=== PATIENT | female | born 2005 | race Caucasian/White ===

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

== ENCOUNTER 2023-10-20 17:26 | Emergency (ER) | payer OTHER ==
[~2023-10-20] VITALS: Ht 160 cm; Wt 68.0 kg
[~2023-10-20 17:26] MED LIST changes: +CIPRO500 MG PO; +PYRIDIUM200 M1 PO
[2023-10-21] MEDS ORDERED: OMNICEF300 MG PO (21:37)
[2023-10-21] MEDS ORDERED: MONISTAT 315 GM V (21:40)
== END 2023-10-20 21:06 | disposition left against medical advice (07) ==
LOC: ED 17:26
DX: R39.198 Other difficulties with micturition (principal); Z53.21 Procedure and treatment not carried out due to patient leaving prior to being seen by health care provider

== ENCOUNTER 2023-10-21 19:42 | Emergency (ER) | payer OTHER ==
[~2023-10-21] VITALS: Ht 160 cm; Wt 63.5 kg
[2023-10-21 19:56] LABS: BILIRUBIN Negative (Negative); BLOOD 2+ (Negative); CLARITY Turbid (Clear); COLOR Yellow (Yellow); GLUCOSE Negative (Negative); KETONE Negative (Negative); LEUKO ESTERASE 3+ (Negative); NITRITE Negative (Negative); SPECIFIC GRAVITY 1.015 (1.001-1.030); UROBILINOGEN 0.2 E.U./dl (0.0-1.0)
[2023-10-21 20:25] LABS: BACTERIA 2+; WBC TNTC wbc/hpf (0-5)
[2023-10-21] MEDS ORDERED: OMNICEF300 MG PO (21:37)
[2023-10-21] MEDS ORDERED: MONISTAT 315 GM V (21:40)
[2023-10-21] MEDS ORDERED: AZITHROMYCIN 250 MG TAB PO ONE (21:45)
== END 2023-10-21 21:25 | disposition home or self-care (01) ==
LOC: ED 19:42
PROVIDERS: Emergency Medicine
DX: N39.0 Urinary tract infection, site not specified (principal); B37.31 Acute candidiasis of vulva and vagina; Z20.2 Contact with and (suspected) exposure to infections with a predominantly sexual mode of transmission; Z79.899 Other long term (current) drug therapy; Z79.2 Long term (current) use of antibiotics

== ENCOUNTER → 2024-02-03 | Emergency (ER) | payer OTHER ==
[~2024-02-03] MED LIST changes: +Bacitracin Zinc 14 GM TUBE T ONE; +MONISTAT 315 GM V; +OMNICEF300 MG PO; +Tdap Vaccine 0.5 ML SYR (Adult Vaccine) IM ONE
[2024-02-03 01:56] LABS: BASO % 0.2 % (0.0-1.0); EOS % 0.1 % (1.0-4.0); HEMATOCRIT 39.4 % (37.0-47.0); LYMPH # 1.2 10*3/uL (1.3-4.4); LYMPH % 13.6 % (27.0-41.0); MEAN CELL VOLUME 88.3 fl (81.0-99.0); MEAN CORPUSCULAR HGB 28.5 pg (27.0-31.0); MEAN CORPUSCULAR HGB CONC 32.2 g/dl (33.0-37.0); MONO # 0.4 10*3/uL (0.1-1.0); MONO % 4.3 % (3.0-9.0); NEUT # 7.1 10*3/uL (2.3-7.9); NEUT % 81.6 % (47.0-73.0); PLATELET COUNT AUTOMATED 280 10*3/uL (130-400); RED BLOOD COUNT 4.46 10*6/uL (4.10-5.10); RED CELL DISTRI WIDTH 13.4 % (0-14.5); WHITE BLOOD COUNT 8.8 10*3/uL (4.8-10.8)
[2024-02-03 02:28] LABS: BILIRUBIN Negative (Negative); BLOOD Negative (Negative); CLARITY Clear (Clear); COLOR Yellow (Yellow); GLUCOSE Negative (Negative); KETONE Negative (Negative); LEUKO ESTERASE Negative (Negative); NITRITE Negative (Negative); PH 6.5 (4.5-8.0); UROBILINOGEN 0.2 E.U./dl (0.0-1.0)
[2024-02-03 02:28] LABS: ALKALINE PHOSPHATASE 126 U/L (46-116); BUN 9 mg/dl (9-23); CHLORIDE 103 mmol/L (98-107); ETHYL ALCOHOL 3.3 mg/dl (<3); POTASSIUM 3.8 mmol/L (3.4-5.1); SGPT/ALT 16 U/L (5-49); TOTAL PROTEIN 7.5 gm/dL (6.0-8.0)
[2024-02-03 02:35] LABS: URINE AMPHETAMINES Negative (1000ng/ml); URINE BARBITURATES Negative (200ng/ml); URINE BENZODIAZEPINES Negative (200ng/ml); URINE CANNABINOIDS (THC) Negative (50ng/ml); URINE COCAINE Negative (300ng/ml); URINE METHADONE Negative (300ng/ml); URINE OPIATES Negative (300ng/ml); URINE PHENCYCLIDINE Negative (25ng/ml)
[2024-02-03 02:54] LABS: BACTERIA TRACE; WBC 0-2 wbc/hpf (0-5)
== END ==
LOC: ED 01:36
PROVIDERS: Internal Medicine
DX: S11.91XA Laceration without foreign body of unspecified part of neck, initial encounter (principal); F43.21 Adjustment disorder with depressed mood; Z79.899 Other long term (current) drug therapy; W26.0XXA Contact with knife, initial encounter; Y93.89 Activity, other specified; Y92.009 Unspecified place in unspecified non-institutional (private) residence as the place of occurrence of the external cause; Y99.8 Other external cause status

== ENCOUNTER 2024-05-10 20:02 | Emergency (ER) | payer OTHER ==
[~2024-05-10] VITALS: Ht 160 cm; Wt 64.9 kg
[~2024-05-10 20:02] MED LIST changes: -Bacitracin Zinc 14 GM TUBE T ONE; -Tdap Vaccine 0.5 ML SYR (Adult Vaccine) IM ONE
[2024-05-10 20:53] LABS: BILIRUBIN Negative (Negative); BLOOD Negative (Negative); CLARITY Clear (Clear); COLOR Yellow (Yellow); GLUCOSE Negative (Negative); KETONE Negative (Negative); LEUKO ESTERASE Negative (Negative); NITRITE Negative (Negative); PH 7.5 (4.5-8.0)
[2024-05-10 21:03] LABS: WBC 0-2 wbc/hpf (0-5)
[2024-05-10] MEDS ORDERED: NAPROSYN500 MG PO (23:52)
[2024-05-10] MEDS ORDERED: Ketorolac Tromethamine 30 MG/ML VIAL IM ONE (23:55)
== END 2024-05-11 00:05 | disposition home or self-care (01) ==
LOC: ED 20:02
PROVIDERS: Nurse Practitioner Family
DX: S16.1XXA Strain of muscle, fascia and tendon at neck level, initial encounter (principal); S20.211A Contusion of right front wall of thorax, initial encounter; S30.1XXA Contusion of abdominal wall, initial encounter; S09.8XXA Other specified injuries of head, initial encounter; V49.9XXA Car occupant (driver) (passenger) injured in unspecified traffic accident, initial encounter; Y93.89 Activity, other specified; Y92.410 Unspecified street and highway as the place of occurrence of the external cause; Y99.8 Other external cause status

== ENCOUNTER 2024-10-28 21:38 | Emergency (ER) | payer OTHER ==
[~2024-10-28 21:38] MED LIST changes: +NAPROSYN500 MG PO
== END 2024-10-28 22:00 | disposition left against medical advice (07) ==
LOC: ED 21:38
DX: Z11.3 Encounter for screening for infections with a predominantly sexual mode of transmission (principal); Z53.21 Procedure and treatment not carried out due to patient leaving prior to being seen by health care provider